=== PATIENT | male | born 1930 | race Caucasian/White ===

== ENCOUNTER 2017-01-12 07:39 | Day surgery (SDC) | payer MEDICARE, OTHER ==
[~2017-01-12] VITALS: Ht 167.6 cm; Wt 99.3 kg
[~2017-01-12 07:39] MED LIST: FUROSEMIDE20 MG PO; GABAPENTIN300 MG PO; LORATADINE10 MG PO; METFORMIN HCL1000 MG PO; NORCO 5-325 TA1 EACH PO; ONDANSETRON HCL8 MG PO; OXYBUTYNIN CHLOR5 MG PO; PANTOPRAZOLE SO40 MG PO; POTASSIUM CHLO10 MEQ PO; SYMBICORT 16010.2 GM INH; TAMSULOSIN HCL0.4 MG PO; VENTOLIN HFA18 GM INH
[2017-01-12] MEDS ORDERED: ASPIR-LOW81 MG PO (08:25)
[2017-01-12] MEDS ORDERED: FLAXSEED OIL1000 M1 PO (08:26)
[2017-01-12] MEDS ORDERED: NASACORT10.8 ML NAS (08:26)
[2017-01-12] MEDS ORDERED: GLEEVEC400 MG PO (08:28)
[2017-01-12] MEDS ORDERED: CALCIUM500 MG PO (08:30)
--- NOTE | 2017-01-12 10:32 | NUR ---
01/12/17 1032 Evangelina Sheikh 1025-PATIENT ARRIVED TO PACU ON 4L NC O2 SAT 99% PATIENT NONAROUSABLE. LAYING LEFT LATERAL. SR. 1030-GLUCOSE 103. PATIENT OPENS EYES TO VERBAL STIMULI AND FALLS BACK ASLEEP. USES 2L NC AT HOME.
--- NOTE | 2017-01-15 07:49 | OR ---
[facility] [address], [place] [address] Signed DATE OF OPERATION: 01/12/2017 SURGEON: Debbie Blair MD PREOPERATIVE DIAGNOSES: 1. Chronic lymphocytic leukemia with Gleevec therapy. 2. Anemia. 3. Distant history of radiation therapy for prostate cancer. POSTOPERATIVE DIAGNOSES: 1. Significant radiation proctitis. 2. Diverticulosis, sigmoid. 3. Pre-pyloric gastric inflammation. PROCEDURE: 1. Total colonoscopy to cecum with biopsy. 2. Upper endoscopy with biopsy. ANESTHESIA: Intravenous sedation, propofol infusion, Zoila Novak [employer]. INDICATION: This 86-year-old white man is the patient of Dr. Ashish Barron and Dr. Sp Swann in [place]. Additionally, he has seen Dr. Greenwood in [place], medical oncologist. He has undergone treatment with Gleevec for chronic lymphocytic leukemia. He has a distant history of prostate cancer with radiation therapy. He was noted to be anemic with a hematocrit of 22 in the past few weeks and underwent transfusion to hematocrit of 31. He has had no hematemesis. He did have some rectal bleeding a few days ago, about a tablespoon in amount. He has no abdominal pain. He is not thought to have progression of his leukemia particularly, however. He is admitted at this time to undergo colonoscopy understanding the risks of bleeding, infection, and perforation. At the conclusion of colonoscopy, consent was also obtained from his who was waiting for him for upper endoscopy to better assure there was no upper gastrointestinal source of bleeding. FINDINGS: On colonoscopy, the prep was good. Complete colonoscopy was undertaken to the cecum Electronically Signed By: DEBBIE BLAIR MD 01/15/17 0749 PATIENT NAME: ISAURO GRAFF OPERATIVE REPORT DATE OF : 34 PHYSICIAN: DEBBIE BLAIR MD REPORT #: [id number] REPORT IS CONFIDENTIAL AND NOT TO BE RELEASED WITHOUT AUTHORIZATION [facility] [address], [place] [address] Signed without question. There were numerous diverticula of the sigmoid, none of which look suspicious for bleeding. He did have significant radiation proctitis located anteriorly consistent with his prostate cancer therapy. Upper endoscopy was performed showing a normal esophagus and duodenum, but pre-pyloric antral gastritis that was significant. There was no ulceration or active bleeding. CLOtest was negative 15 minutes post procedure. DESCRIPTION OF PROCEDURE: The patient was brought to the endoscopy suite and placed in lateral decubitus position. Given his medical comorbidities and so forth, anesthesia was administered with propofol infusion with full cardiopulmonary monitoring. Digital rectal examination was normal. An Olympus video colonoscope was passed in the rectum and manipulated throughout the colon ultimately intubating the cecum itself. The ileocecal valve and appendiceal orifice were normal. The scope was withdrawn from that point. Examination throughout showed no sign of abnormality into the sigmoid where numerous diverticula were once again noted. There was no sign of active bleeding or other abnormality there. Upon withdrawal of the scope further into the rectum, marked proctitis was noted on the anterior wall of the rectum concordant to prior prostate radiation therapy. Remaining rectum was normal. Biopsies were taken of this area. Due to persistent oozing from biopsy site, a hemoclip was applied to the dominant bleeding site allowing for complete hemostasis. The scope was removed. Given the ambiguity of his findings and the possibility of an upper gastrointestinal source would account for his anemia, I recommended upper endoscopy and went to the recovery area and spoke with his about this, who agreed completely. A bite block was placed with all due care and an Olympus video upper endoscope passed in the hypopharynx. While still sedated and passed down through the esophagus into the stomach. The esophagus was entirely normal. The more proximal stomach was normal. Rugal folds were somewhat generous, but not excessively so. Passage to the antrum showed marked inflammatory change of the pre-pyloric antrum. Indeed originally, the pylorus was not easily discerned, ultimately was found and the scope passed through into the duodenum, which was normal. Biopsies were taken of the duodenum to assess for celiac disease and then withdrawn to the antrum. Better characterization of the erythematous streaking and fullness of the mucosal folds was undertaken and photographs taken. Biopsies were obtained as well. Biopsies were additionally taken for CLOtest. The scope was withdrawn. Retroflexed view confirmed a large hiatal hernia, but no sign of Collar ulceration or other problems. The scope was withdrawn to the esophagus, which was entirely normal with no varices or other problems. The scope was further withdrawn and there were no other findings noted. The patient was taken to recovery room in good Electronically Signed By: DEBBIE BLAIR MD 01/15/17 0749 PATIENT NAME: ISAURO GRAFF OPERATIVE REPORT DATE OF : 34 PHYSICIAN: DEBBIE BLAIR MD REPORT #: [id number] REPORT IS CONFIDENTIAL AND NOT TO BE RELEASED WITHOUT AUTHORIZATION [address] [address] Signed condition. CONCLUDING DIAGNOSES: 1. Radiation proctitis, likely causing rectal bleeding and perhaps contributing to anemia. 2. Significant pre-pyloric gastritis. Notably, the patient is on pantoprazole 40 mg daily already. PLAN: Consideration will be made for sucralfate 1 g p.o. t.i.d. on empty stomach and depending on the logistics, consideration was made also for sucralfate enemas if the rectal bleeding is noted. He will return to the ongoing care of Dr. Swann and Dr. Barron and continue to follow up also with Dr. Greenwood in [place]. MD DEB Taylor/SYMONEL /[id number] cc: MD Ashish Martinez MD Kenneth Wenberg, MD Electronically Signed By: DEBBIE BLAIR MD 01/15/17 0749 PATIENT NAME: ISAURO GRAFF OPERATIVE REPORT DATE OF : 34 PHYSICIAN: DEBBIE BLAIR MD REPORT #: [id number] REPORT IS CONFIDENTIAL AND NOT TO BE RELEASED WITHOUT AUTHORIZATION
== END 2017-01-12 11:40 | disposition home or self-care (01) ==
LOC: OPS 07:39 → DS 07:39 → OPS 09:15
PROVIDERS: Surgery
PROC: 0DB78ZX Excision of Stomach, Pylorus, Via Natural or Artificial Opening Endoscopic, Diagnostic (ICD-10-PCS; 2017-01-12)
PROC: 0DBP8ZX Excision of Rectum, Via Natural or Artificial Opening Endoscopic, Diagnostic (ICD-10-PCS; principal; 2017-01-12 09:15)
PROC: 0DB98ZX Excision of Duodenum, Via Natural or Artificial Opening Endoscopic, Diagnostic (ICD-10-PCS; 2017-01-12 09:15)
DX: K62.89 Other specified diseases of anus and rectum (principal); K29.50 Unspecified chronic gastritis without bleeding; K57.30 Diverticulosis of large intestine without perforation or abscess without bleeding; K44.9 Diaphragmatic hernia without obstruction or gangrene; M10.9 Gout, unspecified; D64.9 Anemia, unspecified; I25.2 Old myocardial infarction; G47.30 Sleep apnea, unspecified; Z91.041 Radiographic dye allergy status; Z87.891 Personal history of nicotine dependence; Z96.653 Presence of artificial knee joint, bilateral; Z98.890 Other specified postprocedural states; Z99.81 Dependence on supplemental oxygen; Z79.899 Other long term (current) drug therapy
CPT/HCPCS: 00810; 88305; J0694; J2704; J7120